=== PATIENT | male | born 1935 | race Caucasian/White ===

== ENCOUNTER 2016-12-31 21:52 | Observation (INO) ==
--- NOTE | 2016-12-31 22:13 | Emergency Department Note ---
Disposition Clinical Impression: Altered mental status, Hypokalemia, Hypothyroid, UTI (urinary tract infection) Disposition: Admitted As Inpatient Condition: Fair Referrals: NONE,PCP [Primary Care Provider] - Forms: ED Satisfaction Letter Time of Disposition: :17 ([facility]) Altered Mental Status HPI - General Chief Complaint: ED Altered Mental Status Stated Complaint: Altered Mental Status Time Seen by Provider: 12/31/16 22:11 Source: patient, EMS Mode of arrival: ambulatory Limitations: altered mental status, age Nursing Notes Reviewed: Yes Vital Signs Reviewed: Yes - History of Present Illness HPI Narrative: 81-year-old male who presents here to the emergency room it was [place] over [place] law enforcement [place] [address] [place] [address] upon law enforcement's talking to the individual he did not know person place name date or time at which point EMS was dispatched to the scene upon arrival to the hospital intermittently he has been able tells that he is a hospital and is occasionally called the nurse or the physician by name patient does not know what is going on he does not know where he was going he did tell us that he stopped once he is the restroom and Route but he was not even sure where he was going to end up at he denies chest pain chest pressure palpitations cough hemoptysis or sputum production Daughter tells me that she has been trying to contact him for the last 2 weeks to find out what is going on they have been working with [facility] of [facility] to try to get the patient placed in a care facility because he does not appear to be able to care for himself he was living with his 90-year-old sister who is recently been placed in a residential and since that time he has had very little if any laundry done is unclear of how well he has been eating and the family has noticed a significant decline in overall in his mentation and health his daughter lives in [place] her name is Michelle STERLING telephone number [phone] she is greatly concerned that he needs to be placed in the facility but feels that she is not getting any help she was told that the patient would need to have a physician sign for his well-being denies any additional complaints at this time MD complaint: altered mental status Onset (ago): unknown Timing confirmed by: family member Pain Severity: none Consistency of Symptoms: getting worse Context: unknown Associated symptoms: Denies: chest pain, cough, diaphoresis, fever, chills, headaches, loss of appetite, malaise, nausea/vomiting, rash, seizure, shortness of breath, syncope, weakness, foul smelling urine, difficulty walking, diarrhea - Related Data Home Medications Medication Instructions Recorded Confirmed No Known Home Drugs 12/31/16 12/31/16 Allergies Allergy/AdvReac Type Severity Reaction Status Date / Time Unable to Assess Allergy Unverified 12/31/16 23:19 Limitations: ROS unobtainable due to patients medical condition (Patient's mental status prevents a true obtaining of chief complaint c ros) Past Medical History - Past Medical History Source: unable to obtain Psychiatric history: Reports: other - Social History Smoking Status: Unknown if ever smoked Alcohol use: Reports: none Drug use: Reports: none Physical Exam - General Limitations: altered mental status, age General appearance: alert, in no apparent distress, other (pleasantly confused poorly kept in clothes that appear to be soiled and stained) - Head Head exam: atraumatic, normocephalic, normal inspection - Eye Eye exam: Present: normal appearance, PERRL, EOMI - ENT ENT exam: normal exam, normal oropharynx, mucous membranes moist, TM's normal bilaterally, normal external ear exam - Neck Neck exam: Present: normal inspection, full ROM, trachea midline - Chest Chest inspection: Present: normal inspection, symmetric chest wall rise - Respiratory Respiratory exam: Present: normal lung sounds bilaterally - Cardiovascular Cardiovascular exam: Present: regular rate, normal rhythm, normal heart sounds - Abdominal Exam Abdominal exam: Present: soft, Non-Tender, normal bowel sounds. Absent: mass, pulsatile mass - Extremities Exam Extremities exam: Present: normal inspection, full ROM, normal capillary refill , other (shuffle gait). Absent: tenderness, pedal edema, joint swelling, calf tenderness - Expanded Lower Extremity Exam Neurovascular/Tendon exam: Present: normal capillary refill, normal fine/light touch Gait: antalgic - Back Exam Back exam: Present: normal inspection, full ROM. Absent: muscle spasm - Neurological Exam Neurological exam: Present: alert, CN II-XII intact, other (confused doesnt know date Time Place on a rare occasion is able to tell us his name but cannot tell us his birthdate once was able to tells his address unable to tell us telephone numbers for daughter's name or numbers) - Psychiatric Psychiatric exam: Present: other (Confused) - Skin Skin exam: Present: warm, dry, intact, normal color Course Course Narrative: Altered mental status immediately started and worked up on the individual occasionally he would recognize that a nurse or doctor was at the bedside that the majority the time he was unable to tell us who we were waiting been seen him he was unable to recall that it was no focal weakness consistent with a stroke but laboratory data was done to make sure that he does not infectious or other etiologies which could contribute is noted that he was hypothyroid hypokalemic which were dressed and an underlying UTI which she was started on antibiotics patient was then admitted with mental health consult for geriatric psych considerations in the a.m. and also Dr. Esquivel to have social security assessor discussed with [facility] for disposition - Reevaluation(s) Reevaluation #1: I personally contacted the daughter Michelle discussed the case and findings as well as the fact that we would have Adult Protective Services contacted for further management patient transferred to surgery Reevaluation #2: Clarissa manager presentation for [facility] Protective Services was contacted through the industrial machine operator's office who gave us the number of [phone] call and contact Jordy Irwin in regards to further management of this individual Vital Signs Temperature 98.3 F 12/31/16 21:58 Pulse Rate 64 12/31/16 21:58 Respiratory Rate 16 12/31/16 21:58 Blood Pressure 144/82 12/31/16 21:58 O2 Sat by Pulse Oximetry 98 12/31/16 21:58 Temperature 98.3 F 12/31/16 21:58 Pulse Rate 57 12/31/16 23:26 Respiratory Rate 16 12/31/16 23:26 Blood Pressure 159/95 12/31/16 23:26 O2 Sat by Pulse Oximetry 96 12/31/16 23:26 Oxygen Delivery Oxygen Delivery Room Air Altered Mental Status - Differential Diagnosis Likely: altered mental status, delirium, dementia - Medical Records Medical records reviewed: Yes I reviewed the patient's medical records. - Lab Data Lab results reviewed: Yes I reviewed the patient's lab results. Result diagrams: 12/31/16 22:29 12/31/16 22:29 Lab Results 12/31/16 12/31/16 12/31/16 Range/Units 22:29 22:29 22:29 WBC 5.7 (4.3-11.1) K/mcL RBC 4.04 L (4.19-5.50) M/mcL Hgb 13.3 (12.9-16.9) g/dL Hct 36.9 L (37.5-50.1) % MCV 91.3 (83.0-100.0) fL MCH 32.9 (28.0-33.3) pg MCHC 36.0 H (31.6-35.5) g/dL RDW 14.6 H (11.5-14.5) % Plt Count 231 (140-400) K/mcL MPV 9.5 (9.4-12.4) fL Immature Gran % 0.5 (0-4) % Seg Neutrophils % 63.4 % Lymphocytes % 27.5 % Monocytes % 5.3 % Eosinophils % 1.9 % Basophils % 1.4 % Neutrophils # 3.6 (1.6-8.9) K/mcL Lymphocytes # 1.6 (0.6-4.6) K/mcL Monocytes # 0.3 (0.0-1.3) K/mcL Eosinophils # 0.1 (0.0-0.6) K/mcL Basophils # 0.1 (0.0-0.2) K/mcL PT 11.7 (9.4-12.1) Seconds INR 1.1 APTT 39.0 H (26.0-36.0) Seconds Sodium 137 (136-145) mEq/L Potassium 3.2 L (3.5-4.5) mEq/L Chloride 100 (98-109) mEq/L Carbon Dioxide 25 (19-29) mEq/L BUN 12 (8-26) mg/dL Creatinine 1.82 H (0.72-1.25) mg/dL Est GFR ( Amer) 44 L (> 60) Est GFR (Non-Af Amer) 36 L (> 60) BUN/Creatinine Ratio 7 (6-26) Glucose 107 H (70-99) mg/dL Calculated Osmolality 284 (280-300) Calcium 9.3 (8.6-10.8) mg/dL Total Bilirubin 0.8 (0.2-1.2) mg/dL AST 46 H (5-34) Units/L ALT 15 (0-55) Units/L Alkaline Phosphatase 55 (38-126) Units/L Troponin I (0-0.03) ng/mL B-Natriuretic Peptide (0-100) pg/mL Serum Total Protein 7.3 (6.0-8.3) g/dL Albumin 4.1 (3.5-5.0) g/dL Globulin 3.2 (2.4-3.5) g/dL Albumin/Globulin Ratio 1.3 (1.1-2.2) TSH 148.152 H (0.350-4.840) mcIU/mL Urine Color (Yellow) Urine Clarity (Clear) Urine pH (5.0-8.0) pH Units Ur Specific [place] (1.010-1.025) Urine Protein (Neg-Trace) mg/dL Urine Glucose (UA) (Normal) mg/dL Urine Ketones (Negative) mg/dL Urine Blood (Negative) Urine Nitrite (Negative) Urine Bilirubin (Negative) Urine Urobilinogen (Normal) mg/dL Ur Leukocyte Esterase (Negative) Urine Microscopic RBC (0-3) per hpf Urine Microscopic WBC (0-3) per hpf Ur Squamous Epith Cells (None-Few) per lpf Urine Bacteria (None-Few) per hpf Hyaline Casts (None-Few) per lpf Urine Sperm Ur Culture Indicated? (NO) 12/31/16 12/31/16 12/31/16 Range/Units 22:29 22:29 22:45 WBC (4.3-11.1) K/mcL RBC (4.19-5.50) M/mcL Hgb (12.9-16.9) g/dL Hct (37.5-50.1) % MCV (83.0-100.0) fL MCH (28.0-33.3) pg MCHC (31.6-35.5) g/dL RDW (11.5-14.5) % Plt Count (140-400) K/mcL MPV (9.4-12.4) fL Immature Gran % (0-4) % Seg Neutrophils % % Lymphocytes % % Monocytes % % Eosinophils % % Basophils % % Neutrophils # (1.6-8.9) K/mcL Lymphocytes # (0.6-4.6) K/mcL Monocytes # (0.0-1.3) K/mcL Eosinophils # (0.0-0.6) K/mcL Basophils # (0.0-0.2) K/mcL PT (9.4-12.1) Seconds INR APTT (26.0-36.0) Seconds Sodium (136-145) mEq/L Potassium (3.5-4.5) mEq/L Chloride (98-109) mEq/L Carbon Dioxide (19-29) mEq/L BUN (8-26) mg/dL Creatinine (0.72-1.25) mg/dL Est GFR ( Amer) (> 60) Est GFR (Non-Af Amer) (> 60) BUN/Creatinine Ratio (6-26) Glucose (70-99) mg/dL Calculated Osmolality (280-300) Calcium (8.6-10.8) mg/dL Total Bilirubin (0.2-1.2) mg/dL AST (5-34) Units/L ALT (0-55) Units/L Alkaline Phosphatase (38-126) Units/L Troponin I 0.03 (0-0.03) ng/mL B-Natriuretic Peptide 57 (0-100) pg/mL Serum Total Protein (6.0-8.3) g/dL Albumin (3.5-5.0) g/dL Globulin (2.4-3.5) g/dL Albumin/Globulin Ratio (1.1-2.2) TSH (0.350-4.840) mcIU/mL Urine Color Yellow (Yellow) Urine Clarity Clear (Clear) Urine pH 7.0 (5.0-8.0) pH Units Ur Specific [place] 1.015 (1.010-1.025) Urine Protein Trace (Neg-Trace) mg/dL Urine Glucose (UA) Normal (Normal) mg/dL Urine Ketones Negative (Negative) mg/dL Urine Blood Trace-intact H (Negative) Urine Nitrite Negative (Negative) Urine Bilirubin Negative (Negative) Urine Urobilinogen Normal (Normal) mg/dL Ur Leukocyte Esterase Trace H (Negative) Urine Microscopic RBC 0-3 (0-3) per hpf Urine Microscopic WBC 5-15 H (0-3) per hpf Ur Squamous Epith Cells Few (None-Few) per lpf Urine Bacteria Few (None-Few) per hpf Hyaline Casts Few (None-Few) per lpf Urine Sperm Present Ur Culture Indicated? YES A (NO) - Radiology Data Radiology results reviewed: Yes I reviewed the patient's radiology results. ITS Impressions Chest X-Ray 12/31/16 22:11 IMPRESSION: No acute process. D/ / Óscar Cohen MD / Óscar Cohen MD Interpreting Provider: Óscar Cohen MD Head CT 12/31/16 22:11 IMPRESSION: No acute intracranial abnormality. D/ / Óscar Cohen MD / Óscar Cohen MD Interpreting Provider: Óscar Cohen MD Review the films at does show that he has significant atrophy within the intracranial region on my review despite the fact that the radiologist as no acute intracranial abnormality there was no signs of bleeding or mass at this time and my review - EKG Data EKG attestation: Yes I reviewed and interpreted this EKG. EKG results narrative: This bradycardia nonspecific T-wave rate 59 SD 197 QRS 98 QT 429 axis -78 TPA Checklist - LKW: 3-4.5 hrs Add. Warnings/Precautions Patient/family understanding: The patient/family members have been counseled and understood the risk, benefit , and alternatives of treatment. Critical Care Time Critical Care Time: Yes Total Critical Care Time: 45 Attestation: Critical care performed:45 min due to altered mental status the patient not knowing his name place date or time septic workup was done they does not appear to show signs of sepsis at this time in addition considerations also include that of dementia Alzheimer's it may be related to hyperthyroidism or generalized infectious process Time is exclusive of separately billable procedures. Time includes: direct patient care, patient reassessment, coordination of patient care, interpretation of data (laboratory data, radiology data, and respiratory data), review of patient's medical records, medical consultation and documentation of patient care. Procedures included in critical care time: Procedures excluded from critical care time:
[2016-12-31 22:41] LABS: Basophils # 0.1 K/mcL (0.0-0.2); Basophils % 1.4 %; Eosinophils # 0.1 K/mcL (0.0-0.6); Eosinophils % 1.9 %; Hematocrit 36.9 % (37.5-50.1); Hemoglobin 13.3 g/dL (12.9-16.9); Immature Granulocytes % 0.5 % (0-4); Lymphocytes # 1.6 K/mcL (0.6-4.6); Lymphocytes % 27.5 %; Mean Corpuscular Hemoglobin 32.9 pg (28.0-33.3); Mean Corpuscular Volume 91.3 fL (83.0-100.0); Mean Platelet Volume 9.5 fL (9.4-12.4); Monocytes # 0.3 K/mcL (0.0-1.3); Monocytes % 5.3 %; Neutrophils # 3.6 K/mcL (1.6-8.9); Platelet Count 231 K/mcL (140-400); Red Blood Count 4.04 M/mcL (4.19-5.50); Red Cell Distribution Width 14.6 % (11.5-14.5); Segmented Neutrophils % 63.4 %
[2016-12-31 22:47] LABS: INR 1.1; Prothrombin Time 11.7 Seconds (9.4-12.1)
[2016-12-31 22:49] LABS: Bilirubin,Urine Negative (Negative); Blood,Urine Trace-intact (Negative); Clarity,Urine Clear (Clear); Color,Urine Yellow (Yellow); Glucose,Urine (UA) Normal (Normal); Ketones,Urine Negative (Negative); Leukocyte Esterase,Urine Trace (Negative); Nitrite,Urine Negative (Negative); Protein,Urine Trace mg/dL (Neg-Trace); Specific Gravity,Urine 1.015 (1.010-1.025); Urobilinogen,Urine Normal (Normal)
[2016-12-31 22:55] LABS: Squamous Epithelial Cell,Urine Few per lpf (None-Few)
[2016-12-31 22:56] LABS: Bacteria,Urine Few per hpf (None-Few); RBC,Urine 0-3 per hpf (0-3); Sperm,Urine Present
[2016-12-31 22:57] LABS: Hyaline Casts,Urine Few per lpf (None-Few)
[2016-12-31 22:59] LABS: Albumin 4.1 g/dL (3.5-5.0); Albumin/Globulin Ratio 1.3 (1.1-2.2); Bilirubin,Total 0.8 mg/dL (0.2-1.2); Calcium 9.3 mg/dL (8.6-10.8); Globulin 3.2 g/dL (2.4-3.5); Potassium 3.2 mEq/L (3.5-4.5); Total Protein 7.3 g/dL (6.0-8.3)
[2016-12-31] MEDS ORDERED: Potassium Effervescent 25 MEQ TABLET.EFF PO ONE (23:18)
[2016-12-31 23:49] LABS: Thyroid Stimulating Hormone 148.152 mcIU/mL (0.350-4.840)
[2017-01-01] MEDS ORDERED: Levothyroxine Sodium 100 MCG VIAL IVP STA ×2 (00:45→02:18)
[2017-01-01] MEDS ORDERED: 0.9 % Sodium Chloride 1,000 ML IVC SCH (02:18)
[2017-01-01] MEDS ORDERED: Naloxone 0.4 MG/ML INJ IVP PRN (02:18)
--- NOTE | 2017-01-01 10:54 | Internal Med History&Physical ---
Date of Encounter: 01/01/17 Time of Encounter: 10:00 Assessment and Plan (1) Altered mental status Current visit: Yes Status: Acute Possibly resolved. I do not know his baseline mental status. He has no evidence of delirium at present time but there is evidence of underlying dementia. Urine tox screen will be ordered. Qualifiers: Altered mental status type: unspecified Qualified Code(s): R41.82 - Altered mental status, unspecified (2) Dementia Current visit: Yes Status: Acute He has a diagnosis of dementia per physician notes 2015. His TSH was normal at that time. I will order B12 level. Head CT was unremarkable. Qualifiers: Dementia type: unspecified type Dementia behavioral disturbance: without behavioral disturbance Qualified Code(s): F03.90 - Unspecified dementia without behavioral disturbance (3) CKD (chronic kidney disease) stage 3, GFR 30-59 ml/min Current visit: Yes Status: Chronic Will hold hydrochlorothiazide and monitor renal indices. (4) Hypokalemia Current visit: Yes Status: Acute Will hold hydrochlorothiazide. Supplemental potassium has been given. We will recheck labs in a.m. (5) Hypothyroid Current visit: Yes Status: Chronic He has been noncompliant taking Synthroid per physician notes obtained from his PCP. I will restart Synthroid. Qualifiers: Hypothyroidism type: unspecified Qualified Code(s): E03.9 - Hypothyroidism , unspecified (6) UTI (urinary tract infection) Current visit: Yes Status: Acute He was given Rocephin in the emergency room. I will order Septra DS twice a day. Qualifiers: Urinary tract infection type: site unspecified Hematuria presence: with hematuria Qualified Code(s): N39.0 - Urinary tract infection, site not specified; R31.9 - Hematuria, unspecified (7) Hypertension Current visit: Yes Status: Chronic Will hold hydrochlorothiazide and monitor blood pressure. Qualifiers: Hypertension type: essential hypertension Qualified Code(s): I10 - Essential (primary) hypertension Internal Medicine - H&P: HPI Chief complaint: Confusion Admitted From: Home Plans for Post Hospital Care: Home History of present illness: Mr. Munoz is a 81 year old male who was brought to emergency room after he was found by police confused on the side of the road. He states he had stopped his vehicle to urinate. He was unable to state clearly to the police his name, date or time according to emergency room notes. He was brought by squad to [facility] emergency room and evaluated. Workup showed hypokalemia, azotemia, and markedly elevated TSH. He was admitted to [facility] floor for ongoing care needs. He is a fair to poor historian. Available records show a diagnosis of dementia. He could not state if he has been taking Aricept as prescribed. He denies large distribution strokes or seizures. Past Med Surg Social Fam HX - Past Medical History Medical history: non-contributory Psychiatric history: other - Past Surgical History Surgical History: non-contributory - Social History Smoking Status: Unknown if ever smoked Alcohol use: unknown Drug use: unknown Internal Medicine - H&P: Meds No Known Home Drugs 12/31/16 [History] Allergies No Known Allergies Allergy (Verified 01/01/17 08:16) All Systems PM: A 10-system review of systems was performed and is negative for pertinent findings except as documented above in the HPI. Review of systems: Review of systems is of uncertain accuracy since patient has significant dementia Gen.: He states his weight has been stable past few months Cardiovascular: He has history of hypertension but could not state if he has been using hydrochlorothiazide that has been prescribed in the past. He denies PA heart failure DVT or pulmonary embolus Respiratory: He has smoked since age 17 up to 1 pack per day. He denies chronic lung disease. He does not use home oxygen GI: Denies disorders of his liver gallbladder or exocrine pancreas : Denies hematuria dysuria or kidney stones Neurologic: As per history of present illness Endocrine: He has hypothyroid but has not been taking Synthroid (or other prescribed medications) regularly. He denies known diabetes or hyperlipidemia Hematology/oncology: Denies blood disorders cancers or anemia Psychiatric: He denies anxiety depression or other mental health issues Musk skeletal: Denies arthritis gout or other bone joint or muscle disorders. - Constitutional Vitals: Temp Pulse Resp BP Pulse Ox 97.9 F 53 16 150/74 96 01/01/17 06:49 01/01/17 06:49 01/01/17 06:49 01/01/17 06:49 01/01/17 06:49 Exam: Gen.: He is a well-developed well-nourished male lying in bed and appears in no acute distress. He denies pain or dyspnea HEENT: Head is atraumatic and normocephalic. Eyes: EOMI. There is no scleral icterus. Mouth: Mucosa is moist. Neck: Supple and nontender. There is no thyromegaly or adenopathy noted. Heart: Regular without murmurs gallops or ectopics Lungs: No wheezes or crackles are heard. Abdomen: Soft and nontender. No masses or guarding noted. Extremities: There is no cyanosis edema or clubbing noted. Dorsalis pedis and posterior tibial pulses are 1-2 over 2 bilaterally. Neurologic: Mental status: He is talkative and but a fair to poor historian. Cranial nerves: Smile is symmetric. Forehead wrinkles bilaterally. Tongue protrudes midline. EOMI. Motor: There is no pronator drift. Cerebellar: Finger to nose is intact bilaterally. Skin: Warm and dry. He has multiple seborrheic keratoses on his back. Internal Med - H&P Results - Labs CBC & Chem 7: 12/31/16 22:29 12/31/16 22:29
--- NOTE | 2017-01-01 12:45 | Electrocardiograph Report ---
[address] [address] Test Date: 2016-12-31 Pat Name: Maxwell Munoz Department: [id number] Room: [facility] Gender: M Director Treasurer: [id number] : [id number] Requested By: Jessica Agosto Order Number: [id number] Reading MD: Mayra Rodas Measurements Intervals [place] Rate: 59 P: 74 NC: 197 QRS: -78 QRSD: 98 T: 93 QT: 429 QTc: 429 Interpretive Statements SINUS BRADYCARDIA MARKED LEFT AXIS DEVIATION NONSPECIFIC T-WAVE ABNORMALITY Electronically Signed On 01-01-2017 12:43:04 EDT by Mayra Rodas
[2017-01-01 14:18] LABS: Amphetamine Screen,Urine Negative ng/mL (Cutoff=1000); Barbiturate Screen,Urine Negative ng/mL (Cutoff=200); Benzodiazepines Screen,Urine Negative ng/mL (Cutoff=200); Cannabinoid Screen,Urine Negative ng/mL (Cutoff = 50); Cocaine Screen,Urine Negative ng/mL (Cutoff= 300); Opiate Screen,Urine Negative ng/mL (Cutoff=300); Phencyclidine Screen,Urine Negative ng/mL (Cutoff=25)
[2017-01-01] MEDS: Sulfamethoxazole/Trimeth DS 1 EACH TABLET PO SCH (21:49)
[2017-01-02 05:56] LABS: Calcium 9.3 mg/dL (8.6-10.8); Magnesium 2.2 mg/dL (1.6-2.6); Potassium 3.5 mEq/L (3.5-4.5)
[2017-01-02] MEDS: Sulfamethoxazole/Trimeth DS 1 EACH TABLET PO SCH (08:13)
--- NOTE | 2017-01-02 12:31 | Internal Med Progress Note ---
Date of Encounter: 01/02/17 Time of Encounter: 12:20 - Assessment and plan (1) Altered mental status Current Visit: Yes Status: Acute Assessment and plan: December 02. Appears resolved and now back to baseline. Urine tox screen was negative. Qualifiers: Altered mental status type: unspecified Qualified Code(s): R41.82 - Altered mental status, unspecified (2) Dementia Current Visit: Yes Status: Acute Assessment and plan: December 02. B12 level was normal. Suspect baseline dementia with perhaps slight worsening from hypothyroidism Qualifiers: Dementia type: unspecified type Dementia behavioral disturbance: without behavioral disturbance Qualified Code(s): F03.90 - Unspecified dementia without behavioral disturbance (3) CKD (chronic kidney disease) stage 3, GFR 30-59 ml/min Current Visit: Yes Status: Chronic Assessment and plan: December 02. Continue to hold HCTZ and monitor renal indices. (4) Hypokalemia Current Visit: Yes Status: Resolved Assessment and plan: December 02. Now resolved. Continue to hold HCTZ and monitor labs. (5) Hypothyroid Current Visit: Yes Status: Chronic Assessment and plan: December 02. Continue Synthroid Qualifiers: Hypothyroidism type: unspecified Qualified Code(s): E03.9 - Hypothyroidism , unspecified (6) UTI (urinary tract infection) Current Visit: Yes Status: Acute Assessment and plan: December 02. Urine culture showed no growth. We will discontinue antibiotics Qualifiers: Urinary tract infection type: site unspecified Hematuria presence: with hematuria Qualified Code(s): N39.0 - Urinary tract infection, site not specified; R31.9 - Hematuria, unspecified (7) Hypertension Current Visit: Yes Status: Chronic Assessment and plan: December 02. Will give Norvasc and continue to hold HCTZ. Qualifiers: Hypertension type: essential hypertension Qualified Code(s): I10 - Essential (primary) hypertension - Subjective Interval history: January 02. He has no new complaints - Constitutional Vitals: Temp Pulse Resp BP Pulse Ox 99.1 F 56 18 166/61 99 01/02/17 11:41 01/02/17 11:41 01/02/17 11:41 01/02/17 11:41 01/02/17 11:41 Exam: He is resting comfortably in bed. He is still confused and does not recall any details about his hospital stay or reason for admission. His affect is overall cheerful. I reviewed his medications and lab results. Internal Medicine: Result - Labs CBC & Chem 7: 12/31/16 22:29 01/02/17 05:32 Labs: BMP 01/02/17 05:32 Sodium 139 Potassium 3.5 Chloride 102 Carbon Dioxide 26 BUN 16 Creatinine 1.93 H Glucose 73 Calcium 9.3 - ABG Interpretation ABG results: PT/INR, D-dimer PT 11.7 Seconds (9.4-12.1) 12/31/16 22:29 Consult Discharge Plan - Plan Referrals: NONE,PCP [Primary Care Provider] - 1 week
[2017-01-02] MEDS: amLODIPine 5 MG TABLET PO SCH (13:06)
[2017-01-03] MEDS: amLODIPine 5 MG TABLET PO SCH (08:26)
--- NOTE | 2017-01-03 11:09 | Internal Med Progress Note ---
Date of Encounter: 01/03/17 Time of Encounter: 11:00 - Assessment and plan (1) Altered mental status Current Visit: Yes Status: Acute Assessment and plan: January 02. Appears resolved and now back to baseline. Urine tox screen was negative. Qualifiers: Altered mental status type: unspecified Qualified Code(s): R41.82 - Altered mental status, unspecified (2) Dementia Current Visit: Yes Status: Acute Assessment and plan: January 02. B12 level was normal. Suspect baseline dementia with perhaps slight worsening from hypothyroidism Qualifiers: Dementia type: unspecified type Dementia behavioral disturbance: without behavioral disturbance Qualified Code(s): F03.90 - Unspecified dementia without behavioral disturbance (3) CKD (chronic kidney disease) stage 3, GFR 30-59 ml/min Current Visit: Yes Status: Chronic Assessment and plan: January 02. Continue to hold HCTZ and monitor renal indices. January 03. Recheck labs in a.m. (4) Hypokalemia Current Visit: Yes Status: Resolved Assessment and plan: January 02. Now resolved. Continue to hold HCTZ and monitor labs. January 03. Recheck labs in a.m. (5) Hypothyroid Current Visit: Yes Status: Chronic Assessment and plan: January 02. Continue Synthroid Qualifiers: Hypothyroidism type: unspecified Qualified Code(s): E03.9 - Hypothyroidism , unspecified (6) UTI (urinary tract infection) Current Visit: Yes Status: Acute Assessment and plan: January 02. Urine culture showed no growth. We will discontinue antibiotics Qualifiers: Urinary tract infection type: site unspecified Hematuria presence: with hematuria Qualified Code(s): N39.0 - Urinary tract infection, site not specified; R31.9 - Hematuria, unspecified (7) Hypertension Current Visit: Yes Status: Chronic Assessment and plan: January 02. Will give Norvasc and continue to hold HCTZ. January 03. Will increase Norvasc and continue to hold HCTZ. Qualifiers: Hypertension type: essential hypertension Qualified Code(s): I10 - Essential (primary) hypertension - Subjective Interval history: January 02. He has no new complaints January 03. He has no new complaints and feels well - Constitutional Vitals: Temp Pulse Resp BP Pulse Ox 98.3 F 65 18 164/84 95 01/03/17 10:01/03/17 10:01/03/17 10:17 10:00 01/03/17 10:00 Exam: He is resting comfortably in bed and appears in no acute distress. Extremities show no edema. I reviewed his medications and lab results. Internal Medicine: Result - Labs CBC & Chem 7: 12/31/16 22:29 01/02/17 05:32 - ABG Interpretation ABG results: PT/INR, D-dimer PT 11.7 Seconds (9.4-12.1) 12/31/16 22:29 Consult Discharge Plan - Plan Referrals: NONE,PCP [Primary Care Provider] - 1 week
[2017-01-03] MEDS ORDERED: amLODIPine 5 MG TABLET PO SCH (11:12)
[2017-01-03] MEDS ORDERED: ALPRAZolam 0.5 MG TABLET PO PRN (18:43)
[2017-01-04 06:24] LABS: Calcium 9.4 mg/dL (8.6-10.8); Potassium 3.5 mEq/L (3.5-4.5)
[2017-01-04 15:35] VITALS: BP 154/79
--- NOTE | 2017-01-04 17:49 | Discharge Summary ---
Date of Encounter: 01/04/17 Time of Encounter: 17:30 - Discharge Diagnosis (1) Altered mental status Priority: Primary Status: Resolved Qualifiers: Altered mental status type: unspecified Qualified Code(s): R41.82 - Altered mental status, unspecified (2) Dementia Priority: Secondary Status: Chronic Qualifiers: Dementia type: unspecified type Dementia behavioral disturbance: without behavioral disturbance Qualified Code(s): F03.90 - Unspecified dementia without behavioral disturbance (3) CKD (chronic kidney disease) stage 3, GFR 30-59 ml/min Priority: Secondary Status: Chronic (4) Hypokalemia Priority: Secondary Status: Resolved (5) Hypothyroid Priority: Secondary Status: Chronic Qualifiers: Hypothyroidism type: unspecified Qualified Code(s): E03.9 - Hypothyroidism , unspecified (6) UTI (urinary tract infection) Priority: Secondary Status: Resolved Qualifiers: Urinary tract infection type: site unspecified Hematuria presence: with hematuria Qualified Code(s): N39.0 - Urinary tract infection, site not specified; R31.9 - Hematuria, unspecified (7) Hypertension Priority: Secondary Status: Chronic Qualifiers: Hypertension type: essential hypertension Qualified Code(s): I10 - Essential (primary) hypertension - Discharge Medications Prescriptions: ALPRAZolam [Xanax 0.5 MG Tablet] 0.5 mg PO Q6H PRN #28 tab PRN Reason: Anxiety Sertraline [Zoloft] 50 mg PO DAILY #30 tablet Home Medications: ALPRAZolam [Xanax 0.5 MG Tablet] 0.5 mg PO Q6H PRN #28 tab 01/04/17 [Rx] Levothyroxine [Synthroid] 150 mcg PO DAILY@0630 tab 01/04/17 [Rx] Sertraline [Zoloft] 50 mg PO DAILY #30 tablet 01/04/17 [Rx] amLODIPine [Norvasc] 10 mg PO DAILY tab 01/04/17 [Rx] Allergies/Adverse Reactions: Allergies No Known Allergies Allergy (Verified 01/01/17 08:16) Date of admission: 01/01/17 01:23 Primary care physician: PCP NONE Consults: 01/01/17 05:07 Consult to Nutrition [CONS] Routine Comment: Consulting Provider: NUTRITION Reason for Dietary Consult: MST Score Consult to [employer] [CONS] Routine Reason for SW Consult: Possible ECF placement. Madan COLON consulted through ER. - Patient Status Disposition: Transfer SNF Condition: Fair Functional capacity at discharge: uses cane/walker - Discharge Instructions - Diet and Activity Activity: as per physical therapy Diet: regular diet Hospital course: Mr. Munoz is a 81 year old male who was brought to emergency room after he was found by police confused on the side of the road. He states he had stopped his vehicle to urinate. He was unable to state clearly to the police his name, date or time according to emergency room notes. He was brought by squad to [facility] emergency room and evaluated. Workup showed hypokalemia, azotemia, and markedly elevated TSH. He was admitted to [facility] for ongoing care needs. Initial orders were written by the emergency room physician. I saw him on December 01 and performed the history and physical. His mental status did not change significantly after admission. There was no evidence of delirium. Urine tox screen was negative. B12 level returned normal. I felt he had underlying dementia with possible worsening by hypothyroidism. He was restarted on Synthroid and this was tolerated well. Supplemental potassium was given and hypokalemia resolved and remained normal throughout his hospital stay. He was given amlodipine for hypertension with blood pressure returning to satisfactory level. Amlodipine will be continued at discharge. Azotemia did not significantly change during hospitalization and was consistent with chronic kidney disease stage III. Creatinine is 1.89 with estimated GFR 35 on the day of discharge. Social service consult was made and arrangements were completed on January 04 for him to be transferred to [facility] in [facility] for ongoing care needs. - Time Spent with Patient Total time spent providing and/or coordinating discharge services: - Constitutional Vitals: Temp Pulse Resp BP Pulse Ox 97.9 F 66 16 154/79 96 01/04/17 15:35 01/04/17 15:35 01/04/17 15:35 01/04/17 15:35 01/04/17 15:35
--- NOTE | 2017-01-04 17:57 | Physician Discharge Referral ---
ExtendedCare Referral Info Transfer To: [facility] Provider in Charge: Alvin Provider in Charge after Transfer: PCP - Diagnosis (1) Altered mental status Priority: Primary Status: Resolved (2) Dementia Priority: Secondary Status: Chronic (3) CKD (chronic kidney disease) stage 3, GFR 30-59 ml/min Priority: Secondary Status: Chronic (4) Hypokalemia Priority: Secondary Status: Resolved (5) Hypothyroid Priority: Secondary Status: Chronic (6) UTI (urinary tract infection) Priority: Secondary Status: Resolved (7) Hypertension Priority: Secondary Status: Chronic Prognosis: Fair Aware of Diagnosis: Patient, Family Aware of Prognosis: Patient, Family - Transfer Medications Prescriptions: ALPRAZolam [Xanax 0.5 MG Tablet] 0.5 mg PO Q6H PRN #28 tab PRN Reason: Anxiety Sertraline [Zoloft] 50 mg PO DAILY #30 tablet Home Medications: ALPRAZolam [Xanax 0.5 MG Tablet] 0.5 mg PO Q6H PRN #28 tab 01/04/17 [Rx] Levothyroxine [Synthroid] 150 mcg PO DAILY@0630 tab 01/04/17 [Rx] Sertraline [Zoloft] 50 mg PO DAILY #30 tablet 01/04/17 [Rx] amLODIPine [Norvasc] 10 mg PO DAILY tab 01/04/17 [Rx] Allergies/Adverse Reactions: Allergies No Known Allergies Allergy (Verified 01/01/17 08:16) - Respiratory Orders Smoking Cessation: Smoking cessation has been advised. For more information, call the [place] Tobacco Quit Line at 6-285-RZVF-NOW. - Mobility Orders Ambulate - Rehabiliation Orders Rehab Potential: Fair Rehab Orders: Evaluation for Physical Therapy, Evaluation for Occupational Therapy - Diet Orders Regular CERTIFICATION: I certify that the transfer of the above named patient to an Extended Care Facility is necessary for the continuing treatment of the diagnosis listed. The above information is true and accurate reflection of patient's current condition. Confidential - Redisclosure prohibited without a patient's written consent.
== END 2017-01-04 18:50 ==
LOC: EMEROOPIK 21:52 → INPPIK 21:52
PROVIDERS: ADMIT Internal Medicine; ATTEND Internal Medicine